=== PATIENT | male | born 1955 | race African-American/Black ===

== ENCOUNTER 2017-09-15 13:00 | Inpatient (IN) | payer OTHER, MEDICARE ==
[2017-09-15 14:14] LABS: HEMATOCRIT 43.7 % (42.0-52.0); HEMOGLOBIN 14.5 g/dl (14.0-18.0); MEAN CORPUSCULAR HEMOGLOBIN 31.5 pg (27.0-33.0); MEAN CORPUSCULAR HGB CONC 33.2 g/dl (32.0-36.5); PLATELET COUNT, AUTOMATED 250 10^3/uL (150-450); WHITE BLOOD COUNT 14.2 10^3/uL (4.0-10.0)
[2017-09-15 14:37] LABS: ALBUMIN 4.1 GM/DL (3.2-5.2); ALBUMIN/GLOBULIN RATIO 1.21 (1.00-1.93); ALKALINE PHOSPHATASE 47 U/L (45-117); ALT/SGPT 27 U/L (12-78); ANION GAP 2 MEQ/L (8-16); AST/SGOT 15 U/L (7-37); BILIRUBIN,DIRECT 0.1 MG/DL (0.0-0.2); BILIRUBIN,TOTAL 0.4 MG/DL (0.2-1.0); BLOOD UREA NITROGEN 22 MG/DL (7-18); CALCIUM LEVEL 8.6 MG/DL (8.8-10.2); CARBON DIOXIDE LEVEL 32 MEQ/L (21-32); CHLORIDE LEVEL 106 MEQ/L (98-107); CREATININE FOR GFR 1.12 MG/DL (0.70-1.30); ETHYL ALCOHOL (ETHANOL) < 0.003 % (0.000-0.010); GLOMERULAR FILTRATION RATE > 60.0 (>49); GLUCOSE, FASTING 86 MG/DL (70-100); POTASSIUM SERUM 4.1 MEQ/L (3.5-5.1); SALICYLATE LEVEL < 1.7 MG/DL (5.0-30.0); SODIUM LEVEL 140 MEQ/L (136-145); THYROID STIMULATING HORMONE 0.932 uIU/ML (0.358-3.740); TOTAL PROTEIN 7.5 GM/DL (6.4-8.2)
[2017-09-15 14:41] LABS: ACETAMINOPHEN LEVEL < 2.0 UG/ML (10.0-30.0)
[2017-09-15 15:25] LABS: AMPHETAMINES LEVEL URINE NEGATIVE (NEGATIVE); BARBITURATES URINE NEGATIVE (NEGATIVE); BENZODIAZEPINES URINE NEGATIVE (NEGATIVE); CANNABINOIDS URINE POSITIVE (NEGATIVE); COCAINE METABOLITE URINE NEGATIVE (NEGATIVE); METHADONE URINE NEGATIVE (NEGATIVE); OPIATES URINE NEGATIVE (NEGATIVE); PHENCYCLIDINE URINE NEGATIVE (NEGATIVE)
[2017-09-15] MEDS ORDERED: ACETAMINOPHEN TAB 650MG DOSE (2X325MG) PO (20:45)
[2017-09-15] MEDS ORDERED: MAALOX 30 ML SUSP *UDC PO (20:45)
[2017-09-15] MEDS ORDERED: MOM 30ML SUSPENSION UDC PO (20:45)
[2017-09-15 21:00] LABS: BEDSIDE GLUCOSE 160 MG/DL (80-115)
[2017-09-15] MEDS ORDERED: OLANZapine 5 MG TAB PO (21:15)
[2017-09-16] MEDS: traZODone 50 MG TAB PO (00:15)
[2017-09-16] MEDS: PALIPERIDONE 3 MG ER TAB (INVEGA) PO ×2 (00:19→21:13)
[2017-09-16] MEDS ORDERED: GLUCOSE 4 GM CHEW TABLET PO (04:00)
[2017-09-16] MEDS ORDERED: GLUCAGON FOR INJ 1 MG VIAL (J1610) SC (04:00)
[2017-09-16] MEDS ORDERED: DEXTROSE 50% 50 ML SYRINGE IV (04:00)
[2017-09-16 06:44] LABS: BEDSIDE GLUCOSE 123 MG/DL (80-115)
[2017-09-16] MEDS ORDERED: NovoLOG MIX 70/30 PER UNIT SC ×2 (07:30→12:00)
[2017-09-16] MEDS: NovoLOG MIX 70/30 PER UNIT SC (07:51)
[2017-09-16] MEDS: LEVEMIR (INSULIN DETEMIR) 1 UNITS/0.01ML SC (09:12)
[2017-09-16] MEDS: FLUoxetine 10 MG CAP PO (09:13)
[2017-09-16] MEDS: ATORVASTATIN 20 MG TAB PO (09:50)
[2017-09-16] MEDS: LOSARTAN 50 MG TAB PO (09:51)
[2017-09-16] MEDS: TAMSULOSIN 0.4 MG CAP PO (09:51)
[2017-09-16] MEDS: VITAMIN D 1,000 INTERNATIONAL UNITS TABLET PO (09:51)
[2017-09-16 10:19] LABS: ESTIMATED AVERAGE GLUCOSE 154 MG/DL (60-110)
[2017-09-16] MEDS: oxyBUTYnin *DITROPAN XL* 5 MG TABCR PO (11:30)
[2017-09-16] MEDS: ASPIRIN ENTERIC 325 MG TAB PO (11:31)
[2017-09-16] MEDS: ISOSORBIDE MON. (IMDUR) 60 MG XR TAB PO (11:31)
[2017-09-16] MEDS: hydroCHLOROthiazide 12.5 MG CAPSULE PO (11:31)
[2017-09-16] MEDS: METOPROLOL SUCC (TopROL XL) 100MG *XL* TAB PO (11:31)
[2017-09-16 16:57] LABS: BEDSIDE GLUCOSE 188 MG/DL (80-115)
[2017-09-16] MEDS: HumaLOG INSULIN (NovoLOG) PER UNIT SC (17:17)
[2017-09-16] MEDS: metFORMIN (GLUCOPHAGE) 500 MG TAB PO (17:17)
[2017-09-16] MEDS: traZODone 100 MG TAB PO (21:13)
[2017-09-16 21:18] LABS: BEDSIDE GLUCOSE 79 MG/DL (80-115)
[2017-09-17 06:27] LABS: BEDSIDE GLUCOSE 94 MG/DL (80-115)
[2017-09-17] MEDS: HumaLOG INSULIN (NovoLOG) PER UNIT SC ×2 (07:30→12:51)
[2017-09-17 08:18] LABS: HEMOGLOBIN 14.6 g/dl (14.0-18.0); MEAN CORPUSCULAR HEMOGLOBIN 31.5 pg (27.0-33.0); MEAN CORPUSCULAR HGB CONC 33.2 g/dl (32.0-36.5); MEAN CORPUSCULAR VOLUME 94.8 fl (80.0-96.0); PLATELET COUNT, AUTOMATED 268 10^3/uL (150-450); RED BLOOD COUNT 4.64 10^6/uL (4.30-6.10); RED CELL DISTRIBUTION WIDTH 13.9 % (11.5-14.5); WHITE BLOOD COUNT 14.2 10^3/uL (4.0-10.0)
[2017-09-17] MEDS: metFORMIN (GLUCOPHAGE) 500 MG TAB PO (08:49)
[2017-09-17] MEDS: oxyBUTYnin *DITROPAN XL* 5 MG TABCR PO (08:51)
[2017-09-17] MEDS: ISOSORBIDE MON. (IMDUR) 60 MG XR TAB PO (08:51)
[2017-09-17] MEDS: TAMSULOSIN 0.4 MG CAP PO (08:51)
[2017-09-17] MEDS: METOPROLOL SUCC (TopROL XL) 100MG *XL* TAB PO (08:52)
[2017-09-17] MEDS: ATORVASTATIN 20 MG TAB PO (08:52)
[2017-09-17] MEDS: hydroCHLOROthiazide 12.5 MG CAPSULE PO (08:52)
[2017-09-17] MEDS: FLUoxetine 20 MG CAP PO (08:53)
[2017-09-17] MEDS: VITAMIN D 1,000 INTERNATIONAL UNITS TABLET PO (08:53)
[2017-09-17] MEDS: LOSARTAN 50 MG TAB PO (08:53)
[2017-09-17] MEDS: ASPIRIN ENTERIC 325 MG TAB PO (08:53)
[2017-09-17] MEDS: LEVEMIR (INSULIN DETEMIR) 1 UNITS/0.01ML SC (08:54)
[2017-09-17 18:57] LABS: BEDSIDE GLUCOSE 191 MG/DL (80-115)
== END 2017-09-17 12:50 | DRG 882 ==
LOC: M ED 13:00 → M ED INP 20:36 → M PSY 22:30
DX: F42.9 Obsessive-compulsive disorder, unspecified (principal); F25.9 Schizoaffective disorder, unspecified; C61 Malignant neoplasm of prostate; E78.00 Pure hypercholesterolemia, unspecified; I10 Essential (primary) hypertension; E11.9 Type 2 diabetes mellitus without complications; M25.561 Pain in right knee; M25.562 Pain in left knee; F12.10 Cannabis abuse, uncomplicated; N32.81 Overactive bladder; M25.511 Pain in right shoulder; M25.512 Pain in left shoulder; I25.10 Atherosclerotic heart disease of native coronary artery without angina pectoris; I25.2 Old myocardial infarction; Z95.1 Presence of aortocoronary bypass graft; Z81.8 Family history of other mental and behavioral disorders; Z79.82 Long term (current) use of aspirin; Z79.4 Long term (current) use of insulin; Z79.899 Other long term (current) drug therapy

== ENCOUNTER → 2017-10-01 | Outpatient (CLI) | payer OTHER | LOC: M CARPUL 07:59 | DX: I25.10 Atherosclerotic heart disease of native coronary artery without angina pectoris (principal) | CPT/HCPCS: 93306 ==

== ENCOUNTER 2017-11-19 09:12 | Emergency (ER) | payer OTHER ==
[2017-11-19] MEDS: LIDOCAINE 2% 5ML JELLY UROJET TOP (10:13)
[2017-11-19 10:24] LABS: BASO # 0.1 10^3/uL (0.0-0.2); BASO % 0.5 % (0.0-1.0); EOS # 0.1 10^3/uL (0.0-0.50); EOS % 1.4 % (0.0-3.0); HEMATOCRIT 34.8 % (42.0-52.0); HEMOGLOBIN 11.5 g/dl (13.5-17.5); IMMATURE GRANULOCYTE % 0.7 % (0-3.0); LYMPH # 1.1 10^3/uL (1.5-4.5); LYMPH % 10.1 % (24.0-44.0); MEAN CORPUSCULAR HEMOGLOBIN 31.5 pg (27.0-33.0); MEAN CORPUSCULAR VOLUME 95.3 fl (80.0-96.0); MONO # 0.6 10^3/uL (0.0-0.8); MONO % 5.9 % (0.0-5.0); NEUTROPHILS # 8.5 10^3/uL (1.8-7.7); NEUTROPHILS % 81.4 % (36.0-66.0); PLATELET COUNT, AUTOMATED 259 10^3/uL (150-450); RED BLOOD COUNT 3.65 10^6/uL (4.30-6.10); RED CELL DISTRIBUTION WIDTH 12.8 % (11.5-14.5); WHITE BLOOD COUNT 10.4 10^3/uL (4.0-10.0)
[2017-11-19 10:32] LABS: INR 1.07
[2017-11-19 10:33] LABS: PARTIAL THROMBOPLASTIN TIME 35.9 SECONDS (26.8-37.9)
[2017-11-19 10:44] LABS: ALBUMIN 3.6 GM/DL (3.2-5.2); ALKALINE PHOSPHATASE 37 U/L (45-117); ALT/SGPT 18 U/L (12-78); ANION GAP 11 MEQ/L (8-16); AST/SGOT 20 U/L (7-37); BILIRUBIN,DIRECT < 0.1 MG/DL (0.0-0.2); BILIRUBIN,TOTAL 0.4 MG/DL (0.2-1.0); BLOOD UREA NITROGEN 15 MG/DL (7-18); CALCIUM LEVEL 8.5 MG/DL (8.8-10.2); CARBON DIOXIDE LEVEL 20 MEQ/L (21-32); CHLORIDE LEVEL 111 MEQ/L (98-107); CREATININE FOR GFR 1.15 MG/DL (0.70-1.30); GLOMERULAR FILTRATION RATE > 60.0 (>49); GLUCOSE, FASTING 68 MG/DL (70-100); POTASSIUM SERUM 4.4 MEQ/L (3.5-5.1); SODIUM LEVEL 142 MEQ/L (136-145); TOTAL PROTEIN 7.2 GM/DL (6.4-8.2)
[2017-11-19 11:03] LABS: APPEARANCE, URINE HAZY (CLEAR); BACTERIA, URINE AUTO NEGATIVE (NEGATIVE); BILIRUBIN, URINE AUTO NEGATIVE (NEGATIVE); BLOOD, URINE BLOOD 2+ (NEGATIVE); COLOR, URINE YELLOW (YELLOW); GLUCOSE, URINE (UA) AUTO 3+ mg/dL (NEGATIVE); KETONE, URINE AUTO NEGATIVE (NEGATIVE); LEUKOCYTE ESTERASE, URINE AUTO 2+ (NEGATIVE); NITRITE, URINE AUTO NEGATIVE (NEGATIVE); PROTEIN, URINE AUTO NEGATIVE (NEGATIVE); RBC, URINE AUTO 39 /HPF (0-3); SPECIFIC GRAVITY URINE AUTO 1.021 (1.002-1.035); SQUAMOUS EPITHELIAL CELL UR AU 4 /HPF (0-6); WBC, URINE AUTO 27 /HPF (0-3)
== END 2017-11-19 12:25 | disposition home or self-care (01) ==
LOC: M ED 09:12
DX: T83.098A Other mechanical complication of other urinary catheter, initial encounter (principal); R31.0 Gross hematuria; Y73.2 Prosthetic and other implants, materials and accessory gastroenterology and urology devices associated with adverse incidents; R60.0 Localized edema; K21.9 Gastro-esophageal reflux disease without esophagitis; F20.9 Schizophrenia, unspecified; E11.9 Type 2 diabetes mellitus without complications; M54.5 Low back pain; Z85.46 Personal history of malignant neoplasm of prostate; I25.2 Old myocardial infarction; Z87.891 Personal history of nicotine dependence; Z79.899 Other long term (current) drug therapy; Z79.4 Long term (current) use of insulin; Z79.82 Long term (current) use of aspirin
CPT/HCPCS: 93970

== ENCOUNTER 2018-06-04 10:26 | Inpatient (IN) | payer OTHER ==
[2018-06-04 10:57] LABS: VENOUS BASE EXCESS -2.3 (-2.0-2.0); VENOUS O2 SATURATION 51.8 % (60.0-80.0); VENOUS PARTIAL PRESSURE CO2 28.1 mmHg (38.0-50.0); VENOUS PARTIAL PRESSURE O2 26.1 mmHg (30.0-50.0); VENOUS PH 7.471 UNITS (7.330-7.430); VENOUS STANDARD HCO3 21.6 MEQ/L; VENOUS TOTAL CO2 20.9 MEQ/L (24.0-28.0)
[2018-06-04] MEDS: METOPROLOL TART 50 MG TAB PO ×2 (11:04→16:17)
[2018-06-04] MEDS: METOPROLOL 5 MG/5 ML VIAL IV ×3 (11:04→11:22)
[2018-06-04 11:06] LABS: BASO # 0.1 10^3/uL (0.0-0.2); BASO % 0.6 % (0.0-1.0); EOS # 0.1 10^3/uL (0.0-0.50); HEMATOCRIT 38.9 % (42.0-52.0); HEMOGLOBIN 12.9 g/dl (13.5-17.5); IMMATURE GRANULOCYTE % 0.6 % (0-3.0); LYMPH # 1.5 10^3/uL (1.5-4.5); MEAN CORPUSCULAR HEMOGLOBIN 30.4 pg (27.0-33.0); MEAN CORPUSCULAR HGB CONC 33.2 g/dl (32.0-36.5); MEAN CORPUSCULAR VOLUME 91.7 fl (80.0-96.0); MONO # 0.7 10^3/uL (0.0-0.8); MONO % 7.4 % (0.0-5.0); NEUTROPHILS # 7.2 10^3/uL (1.8-7.7); NEUTROPHILS % 74.4 % (36.0-66.0); PLATELET COUNT, AUTOMATED 269 10^3/uL (150-450); RED BLOOD COUNT 4.24 10^6/uL (4.30-6.10); RED CELL DISTRIBUTION WIDTH 13.3 % (11.5-14.5); WHITE BLOOD COUNT 9.7 10^3/uL (4.0-10.0)
[2018-06-04 11:16] LABS: INR 1.13; PROTHROMBIN TIME 14.6 SECONDS (12.1-14.4)
[2018-06-04] MEDS ORDERED: ONDANSETRON 4MG/2ML VIAL (J2405) As Ordered (11:27)
[2018-06-04] MEDS ORDERED: MORPHINE 2 MG/ML 1ML SYRINGE (J2270) As Ordered (11:27)
[2018-06-04] MEDS: ONDANSETRON 4MG/2ML VIAL (J2405) IV (11:28)
[2018-06-04] MEDS: MORPHINE 2 MG/ML 1ML SYRINGE (J2270) IV ×2 (11:29→12:03)
[2018-06-04 11:43] LABS: ALBUMIN 3.7 GM/DL (3.2-5.2); ALBUMIN/GLOBULIN RATIO 1.06 (1.00-1.93); ALKALINE PHOSPHATASE 43 U/L (45-117); ALT/SGPT 23 U/L (12-78); ANION GAP 12 MEQ/L (8-16); AST/SGOT 17 U/L (7-37); BILIRUBIN,DIRECT 0.2 MG/DL (0.0-0.2); BILIRUBIN,TOTAL 1.1 MG/DL (0.2-1.0); BLOOD UREA NITROGEN 14 MG/DL (7-18); CALCIUM LEVEL 8.8 MG/DL (8.8-10.2); CARBON DIOXIDE LEVEL 22 MEQ/L (21-32); CHLORIDE LEVEL 107 MEQ/L (98-107); CPK CREATINE PHOSPHOKINASE 513 U/L (39-308); CREATININE FOR GFR 1.37 MG/DL (0.70-1.30); GLOMERULAR FILTRATION RATE > 60.0 (>49); GLUCOSE, FASTING 109 MG/DL (70-100); MB/CK RELATIVE INDEX 0.62 (< OR =4); NT-PRO BNP 1249 PG/ML (<125); POTASSIUM SERUM 4.1 MEQ/L (3.5-5.1); SODIUM LEVEL 141 MEQ/L (136-145); THYROID STIMULATING HORMONE 0.938 uIU/ML (0.358-3.740); TOTAL PROTEIN 7.2 GM/DL (6.4-8.2); TROPONIN I 0.03 NG/ML (< 0.10)
[2018-06-04] MEDS: NS 1,000 ML IV (14:54)
[2018-06-04 15:45] LABS: CPK CREATINE PHOSPHOKINASE 453 U/L (39-308); MB/CK RELATIVE INDEX 0.55 (< OR =4); TROPONIN I 0.04 NG/ML (< 0.10)
[2018-06-04] MEDS: APIXABAN 5 MG TAB (ELIQUIS) PO (16:47)
[2018-06-04] MEDS ORDERED: GLUCOSE 4 GM CHEW TABLET PO (17:15)
[2018-06-04] MEDS ORDERED: GLUCAGON FOR INJ 1 MG VIAL (J1610) SC (17:15)
[2018-06-04] MEDS ORDERED: DEXTROSE 50% 50 ML SYRINGE IV (17:15)
[2018-06-04] MEDS: HumaLOG INSULIN (NovoLOG) PER UNIT SC ×2 (17:30→21:00)
[2018-06-04] MEDS ORDERED: PERCOCET 5MG/325MG TAB PO (17:45)
[2018-06-04 17:53] LABS: KETONE, URINE AUTO RFX NEGATIVE (NEGATIVE); LEUKOCYTE ESTERASE UR AUTO RFX NEGATIVE (NEGATIVE); MUCUS, URINE RFX LARGE (NEGATIVE); NITRITE, URINE AUTO RFX NEGATIVE (NEGATIVE); RBC, URINE AUTO RFX 1 /HPF (0-3); SPECIFIC GRAVITY UR AUTO RFX 1.027 (1.002-1.035); SQUAM EPITHELIAL CELL UR AURFX 4 /HPF (0-6); WBC, URINE AUTO RFX 1 /HPF (0-3)
[2018-06-04] MEDS: TROSPIUM 20 MG TAB PO (21:00)
[2018-06-05 00:37] LABS: BEDSIDE GLUCOSE 159 MG/DL (80-115)
[2018-06-05] MEDS: NS 1,000 ML IV (00:50)
[2018-06-05] MEDS: LEVEMIR (INSULIN DETEMIR) 1 UNITS/0.01ML SC ×3 (00:50→20:49)
[2018-06-05] MEDS: traZODone 50 MG TAB PO ×2 (00:51→20:48)
[2018-06-05 01:53] LABS: CPK CREATINE PHOSPHOKINASE 409 U/L (39-308); MB/CK RELATIVE INDEX 0.71 (< OR =4); TROPONIN I 0.02 NG/ML (< 0.10)
[2018-06-05 06:05] LABS: HEMATOCRIT 35.8 % (42.0-52.0); HEMOGLOBIN 11.6 g/dl (13.5-17.5); MEAN CORPUSCULAR HEMOGLOBIN 30.4 pg (27.0-33.0); MEAN CORPUSCULAR HGB CONC 32.4 g/dl (32.0-36.5); MEAN CORPUSCULAR VOLUME 93.7 fl (80.0-96.0); PLATELET COUNT, AUTOMATED 230 10^3/uL (150-450); RED BLOOD COUNT 3.82 10^6/uL (4.30-6.10); RED CELL DISTRIBUTION WIDTH 13.4 % (11.5-14.5); WHITE BLOOD COUNT 9.2 10^3/uL (4.0-10.0)
[2018-06-05 06:22] LABS: ANION GAP 7 MEQ/L (8-16); BLOOD UREA NITROGEN 17 MG/DL (7-18); CALCIUM LEVEL 8.1 MG/DL (8.8-10.2); CARBON DIOXIDE LEVEL 21 MEQ/L (21-32); CHLORIDE LEVEL 111 MEQ/L (98-107); GLOMERULAR FILTRATION RATE > 60.0 (>49); GLUCOSE, FASTING 109 MG/DL (70-100); POTASSIUM SERUM 4.2 MEQ/L (3.5-5.1); SODIUM LEVEL 139 MEQ/L (136-145)
[2018-06-05] MEDS: FLUBLOK(EGG FREE)(QUAD)INFLUENZA VACC 0.5ML SYRINGE (90682)18YRS&OLDER IM ×2 (09:00→15:05)
[2018-06-05] MEDS ORDERED: METOPROLOL TART 50 MG TAB PO (09:00)
[2018-06-05] MEDS ORDERED: ISOVUE-370 76% 100ML VIAL (Q9967) As Ordered (09:51)
[2018-06-05] MEDS: LOSARTAN 50 MG TAB PO (09:58)
[2018-06-05] MEDS: ROSUVASTATIN 10 MG TAB (CRESTOR) PO (09:58)
[2018-06-05] MEDS: HumaLOG INSULIN (NovoLOG) PER UNIT SC ×4 (09:58→20:48)
[2018-06-05] MEDS: FLUoxetine 20 MG CAP PO (09:58)
[2018-06-05] MEDS: ISOSORBIDE MON. (IMDUR) 60 MG XR TAB PO (09:59)
[2018-06-05] MEDS: TROSPIUM 20 MG TAB PO ×2 (10:00→20:48)
[2018-06-05] MEDS: APIXABAN 5 MG TAB (ELIQUIS) PO ×2 (10:00→20:48)
[2018-06-05] MEDS: ASPIRIN 81 MG ENTERIC TAB PO (10:00)
[2018-06-05] MEDS: METOPROLOL TART 50 MG TAB PO ×3 (10:00→20:49)
[2018-06-05 10:03] LABS: CPK CREATINE PHOSPHOKINASE 377 U/L (39-308); MB/CK RELATIVE INDEX 0.74 (< OR =4); TROPONIN I 0.04 NG/ML (< 0.10)
[2018-06-05] MEDS ORDERED: SLF 3 ML SYR IV (12:00)
[2018-06-05 12:29] LABS: BEDSIDE GLUCOSE 151 MG/DL (80-115)
[2018-06-05] MEDS: CEPACOL LOZENGE PO ×2 (12:59→20:45)
[2018-06-05] MEDS: SLF 3 ML SYR IV ×2 (14:22→22:17)
[2018-06-05 18:33] LABS: BEDSIDE GLUCOSE 200 MG/DL (80-115)
[2018-06-05 20:49] LABS: BEDSIDE GLUCOSE 202 MG/DL (80-115)
[2018-06-05] MEDS: BENZONATATE 100 MG CAP PO (22:13)
[2018-06-06] MEDS: CEPACOL LOZENGE PO ×2 (03:55→21:59)
[2018-06-06] MEDS: METOPROLOL TART 50 MG TAB PO ×4 (03:55→21:58)
[2018-06-06] MEDS: BENZONATATE 100 MG CAP PO ×2 (03:55→21:59)
[2018-06-06 04:51] LABS: HEMATOCRIT 33.4 % (42.0-52.0); HEMOGLOBIN 10.7 g/dl (13.5-17.5); MEAN CORPUSCULAR HEMOGLOBIN 30.5 pg (27.0-33.0); MEAN CORPUSCULAR VOLUME 95.2 fl (80.0-96.0); PLATELET COUNT, AUTOMATED 231 10^3/uL (150-450); RED BLOOD COUNT 3.51 10^6/uL (4.30-6.10); RED CELL DISTRIBUTION WIDTH 13.2 % (11.5-14.5); WHITE BLOOD COUNT 9.1 10^3/uL (4.0-10.0)
[2018-06-06 05:11] LABS: ANION GAP 4 MEQ/L (8-16); BLOOD UREA NITROGEN 19 MG/DL (7-18); CALCIUM LEVEL 8.5 MG/DL (8.8-10.2); CARBON DIOXIDE LEVEL 29 MEQ/L (21-32); CHLORIDE LEVEL 108 MEQ/L (98-107); CREATININE FOR GFR 1.23 MG/DL (0.70-1.30); GLOMERULAR FILTRATION RATE > 60.0 (>49); GLUCOSE, FASTING 159 MG/DL (70-100); POTASSIUM SERUM 4.5 MEQ/L (3.5-5.1); SODIUM LEVEL 141 MEQ/L (136-145)
[2018-06-06] MEDS: SLF 3 ML SYR IV ×3 (05:15→22:03)
[2018-06-06] MEDS: HumaLOG INSULIN (NovoLOG) PER UNIT SC ×4 (08:38→21:00)
[2018-06-06] MEDS: LEVEMIR (INSULIN DETEMIR) 1 UNITS/0.01ML SC ×2 (08:38→22:00)
[2018-06-06] MEDS: FUROSEMIDE 40 MG/4 ML VIAL (J1940) IV (08:38)
[2018-06-06] MEDS: FLUoxetine 20 MG CAP PO (08:39)
[2018-06-06] MEDS: ISOSORBIDE MON. (IMDUR) 60 MG XR TAB PO (08:39)
[2018-06-06] MEDS: ASPIRIN 81 MG ENTERIC TAB PO (08:39)
[2018-06-06] MEDS: ROSUVASTATIN 10 MG TAB (CRESTOR) PO (08:39)
[2018-06-06] MEDS: APIXABAN 5 MG TAB (ELIQUIS) PO ×2 (08:40→21:59)
[2018-06-06] MEDS: LOSARTAN 50 MG TAB PO (08:40)
[2018-06-06] MEDS: TROSPIUM 20 MG TAB PO ×2 (08:44→21:59)
[2018-06-06] MEDS: BISACODYL 5 MG TAB PO (10:18)
[2018-06-06 12:10] LABS: BEDSIDE GLUCOSE 195 MG/DL (80-115)
[2018-06-06 17:19] LABS: BEDSIDE GLUCOSE 124 MG/DL (80-115)
[2018-06-06] MEDS: traZODone 50 MG TAB PO (21:59)
[2018-06-06 22:04] LABS: BEDSIDE GLUCOSE 180 MG/DL (80-115)
[2018-06-07] MEDS: DOCUSATE SODIUM 100 MG CAP PO ×4 (00:28→22:16)
[2018-06-07] MEDS: SENNA 8.6 MG TAB (SENOKOT) PO ×4 (00:29→22:16)
[2018-06-07] MEDS: METOPROLOL TART 50 MG TAB PO ×4 (03:40→22:17)
[2018-06-07 04:54] LABS: HEMATOCRIT 32.8 % (42.0-52.0); HEMOGLOBIN 10.9 g/dl (13.5-17.5); MEAN CORPUSCULAR HEMOGLOBIN 30.8 pg (27.0-33.0); MEAN CORPUSCULAR HGB CONC 33.2 g/dl (32.0-36.5); MEAN CORPUSCULAR VOLUME 92.7 fl (80.0-96.0); PLATELET COUNT, AUTOMATED 252 10^3/uL (150-450); RED BLOOD COUNT 3.54 10^6/uL (4.30-6.10); RED CELL DISTRIBUTION WIDTH 12.8 % (11.5-14.5); WHITE BLOOD COUNT 9.2 10^3/uL (4.0-10.0)
[2018-06-07 05:16] LABS: ANION GAP 8 MEQ/L (8-16); BLOOD UREA NITROGEN 21 MG/DL (7-18); CALCIUM LEVEL 8.6 MG/DL (8.8-10.2); CARBON DIOXIDE LEVEL 28 MEQ/L (21-32); CHLORIDE LEVEL 104 MEQ/L (98-107); CREATININE FOR GFR 1.23 MG/DL (0.70-1.30); GLOMERULAR FILTRATION RATE > 60.0 (>49); GLUCOSE, FASTING 204 MG/DL (70-100); SODIUM LEVEL 140 MEQ/L (136-145)
[2018-06-07] MEDS: MIRALAX *UNIT DOSE* 17GM PACKET PO (05:46)
[2018-06-07] MEDS: CEPACOL LOZENGE PO (05:46)
[2018-06-07] MEDS: BENZONATATE 100 MG CAP PO (05:48)
[2018-06-07] MEDS: SLF 3 ML SYR IV ×3 (05:48→22:19)
[2018-06-07] MEDS: ROSUVASTATIN 10 MG TAB (CRESTOR) PO (08:22)
[2018-06-07] MEDS: ASPIRIN 81 MG ENTERIC TAB PO (08:22)
[2018-06-07] MEDS: BISACODYL 5 MG TAB PO (08:22)
[2018-06-07] MEDS: FLUoxetine 20 MG CAP PO (08:22)
[2018-06-07] MEDS: APIXABAN 5 MG TAB (ELIQUIS) PO ×2 (08:22→22:18)
[2018-06-07] MEDS: FUROSEMIDE 40 MG/4 ML VIAL (J1940) IV (08:23)
[2018-06-07] MEDS: HumaLOG INSULIN (NovoLOG) PER UNIT SC ×4 (08:23→21:00)
[2018-06-07] MEDS: LEVEMIR (INSULIN DETEMIR) 1 UNITS/0.01ML SC ×2 (08:24→22:18)
[2018-06-07] MEDS: TROSPIUM 20 MG TAB PO ×2 (08:25→22:18)
[2018-06-07] MEDS: LOSARTAN 50 MG TAB PO ×2 (08:27→22:17)
[2018-06-07] MEDS: ISOSORBIDE MON. (IMDUR) 60 MG XR TAB PO (08:28)
[2018-06-07 11:41] LABS: BEDSIDE GLUCOSE 211 MG/DL (80-115)
[2018-06-07] MEDS: BISACODYL 10 MG SUPP PR (11:44)
[2018-06-07 16:31] LABS: BEDSIDE GLUCOSE 139 MG/DL (80-115)
[2018-06-07 20:03] LABS: BEDSIDE GLUCOSE 177 MG/DL (80-115)
[2018-06-07] MEDS: traZODone 50 MG TAB PO (22:18)
[2018-06-08] MEDS: METOPROLOL TART 50 MG TAB PO ×2 (03:34→08:26)
[2018-06-08] MEDS: SLF 3 ML SYR IV (05:23)
[2018-06-08 05:55] LABS: HEMATOCRIT 35.2 % (42.0-52.0); HEMOGLOBIN 11.5 g/dl (13.5-17.5); MEAN CORPUSCULAR HEMOGLOBIN 30.4 pg (27.0-33.0); MEAN CORPUSCULAR HGB CONC 32.7 g/dl (32.0-36.5); MEAN CORPUSCULAR VOLUME 93.1 fl (80.0-96.0); PLATELET COUNT, AUTOMATED 272 10^3/uL (150-450); RED BLOOD COUNT 3.78 10^6/uL (4.30-6.10); RED CELL DISTRIBUTION WIDTH 12.8 % (11.5-14.5); WHITE BLOOD COUNT 8.2 10^3/uL (4.0-10.0)
[2018-06-08 06:20] LABS: ANION GAP 6 MEQ/L (8-16); BLOOD UREA NITROGEN 19 MG/DL (7-18); CALCIUM LEVEL 8.9 MG/DL (8.8-10.2); CARBON DIOXIDE LEVEL 26 MEQ/L (21-32); CHLORIDE LEVEL 105 MEQ/L (98-107); CREATININE FOR GFR 1.07 MG/DL (0.70-1.30); GLOMERULAR FILTRATION RATE > 60.0 (>49); GLUCOSE, FASTING 156 MG/DL (70-100); POTASSIUM SERUM 3.6 MEQ/L (3.5-5.1); SODIUM LEVEL 137 MEQ/L (136-145)
[2018-06-08] MEDS: ASPIRIN 81 MG ENTERIC TAB PO (08:25)
[2018-06-08] MEDS: ROSUVASTATIN 10 MG TAB (CRESTOR) PO (08:25)
[2018-06-08] MEDS: LOSARTAN 50 MG TAB PO (08:26)
[2018-06-08] MEDS: FUROSEMIDE 40 MG TAB PO (08:26)
[2018-06-08] MEDS: FLUoxetine 20 MG CAP PO (08:26)
[2018-06-08] MEDS: APIXABAN 5 MG TAB (ELIQUIS) PO (08:27)
[2018-06-08] MEDS: DOCUSATE SODIUM 100 MG CAP PO (08:27)
[2018-06-08] MEDS: ISOSORBIDE MON. (IMDUR) 60 MG XR TAB PO (08:27)
[2018-06-08] MEDS: HumaLOG INSULIN (NovoLOG) PER UNIT SC (08:27)
[2018-06-08] MEDS: SENNA 8.6 MG TAB (SENOKOT) PO (08:28)
[2018-06-08] MEDS: TROSPIUM 20 MG TAB PO (08:29)
[2018-06-08] MEDS: LEVEMIR (INSULIN DETEMIR) 1 UNITS/0.01ML SC (08:29)
[2018-06-08 11:26] LABS: BEDSIDE GLUCOSE 211 MG/DL (80-115)
== END 2018-06-08 12:23 | disposition home or self-care (01) | DRG 309 ==
LOC: M PCU 06-05 00:19 → M MSPAV 06-07 16:36 → M PCU 06-05 05:06 → M ED 10:26 → M ED INP 19:13
PROVIDERS: Hospitalist
DX: I48.91 Unspecified atrial fibrillation (principal); I50.40 Unspecified combined systolic (congestive) and diastolic (congestive) heart failure; I48.92 Unspecified atrial flutter; G47.00 Insomnia, unspecified; E78.5 Hyperlipidemia, unspecified; I27.20 Pulmonary hypertension, unspecified; F42.9 Obsessive-compulsive disorder, unspecified; I34.0 Nonrheumatic mitral (valve) insufficiency; N32.81 Overactive bladder; E66.9 Obesity, unspecified; I25.10 Atherosclerotic heart disease of native coronary artery without angina pectoris; N40.0 Benign prostatic hyperplasia without lower urinary tract symptoms; F25.9 Schizoaffective disorder, unspecified; I11.0 Hypertensive heart disease with heart failure; E11.9 Type 2 diabetes mellitus without complications; Z95.1 Presence of aortocoronary bypass graft; Z85.47 Personal history of malignant neoplasm of testis; Z85.46 Personal history of malignant neoplasm of prostate; Z98.61 Coronary angioplasty status; Z87.891 Personal history of nicotine dependence; I25.2 Old myocardial infarction; Z79.82 Long term (current) use of aspirin; Z79.4 Long term (current) use of insulin; Z79.899 Other long term (current) drug therapy

== ENCOUNTER 2018-07-06 11:41 | Inpatient (IN) | payer OTHER ==
[2018-07-06 12:04] LABS: BASO % 0.4 % (0.0-1.0); EOS # 0.1 10^3/uL (0.0-0.50); EOS % 0.9 % (0.0-3.0); HEMATOCRIT 33.8 % (42.0-52.0); HEMOGLOBIN 10.7 g/dl (13.5-17.5); IMMATURE GRANULOCYTE % 0.5 % (0-3.0); LYMPH # 1.8 10^3/uL (1.5-4.5); LYMPH % 18.4 % (24.0-44.0); MEAN CORPUSCULAR HEMOGLOBIN 30.2 pg (27.0-33.0); MEAN CORPUSCULAR HGB CONC 31.7 g/dl (32.0-36.5); MEAN CORPUSCULAR VOLUME 95.5 fl (80.0-96.0); MONO # 0.7 10^3/uL (0.0-0.8); MONO % 6.7 % (0.0-5.0); NEUTROPHILS % 73.1 % (36.0-66.0); PLATELET COUNT, AUTOMATED 243 10^3/uL (150-450); RED BLOOD COUNT 3.54 10^6/uL (4.30-6.10); RED CELL DISTRIBUTION WIDTH 14.3 % (11.5-14.5); WHITE BLOOD COUNT 9.6 10^3/uL (4.0-10.0)
[2018-07-06 12:28] LABS: ALBUMIN 3.4 GM/DL (3.2-5.2); ALBUMIN/GLOBULIN RATIO 0.92 (1.00-1.93); ALKALINE PHOSPHATASE 54 U/L (45-117); ALT/SGPT 53 U/L (12-78); ANION GAP 6 MEQ/L (8-16); AST/SGOT 44 U/L (7-37); BILIRUBIN,DIRECT 0.2 MG/DL (0.0-0.2); BILIRUBIN,TOTAL 0.6 MG/DL (0.2-1.0); BLOOD UREA NITROGEN 16 MG/DL (7-18); CALCIUM LEVEL 8.3 MG/DL (8.8-10.2); CARBON DIOXIDE LEVEL 28 MEQ/L (21-32); CHLORIDE LEVEL 109 MEQ/L (98-107); CPK CREATINE PHOSPHOKINASE 413 U/L (39-308); CREATININE FOR GFR 1.08 MG/DL (0.70-1.30); GLOMERULAR FILTRATION RATE > 60.0 (>49); GLUCOSE, FASTING 42 MG/DL (70-100); LIPASE 67 U/L (73-393); MB/CK RELATIVE INDEX 0.73 (< OR =4); SODIUM LEVEL 143 MEQ/L (136-145); TOTAL PROTEIN 7.1 GM/DL (6.4-8.2); TROPONIN I 0.12 NG/ML (< 0.10)
[2018-07-06 12:29] LABS: INR 1.43; PROTHROMBIN TIME 17.7 SECONDS (12.1-14.4)
[2018-07-06 12:30] LABS: PARTIAL THROMBOPLASTIN TIME 38.1 SECONDS (25.4-37.6)
[2018-07-06 13:01] LABS: BEDSIDE GLUCOSE 36 MG/DL (80-115)
[2018-07-06] MEDS: DEXTROSE 50% 50 ML SYRINGE IV ×2 (13:04→14:58)
[2018-07-06] MEDS ORDERED: ISOVUE-370 76% 100ML VIAL (Q9967) As Ordered (13:11)
[2018-07-06 14:04] LABS: BEDSIDE GLUCOSE 74 MG/DL (80-115)
[2018-07-06] MEDS: METOPROLOL SUCC (TopROL XL) 100MG *XL* TAB PO (14:11)
[2018-07-06] MEDS: FUROSEMIDE 40 MG/4 ML VIAL (J1940) IV ×2 (14:28→20:00)
[2018-07-06 14:57] LABS: CPK CREATINE PHOSPHOKINASE 393 U/L (39-308); MB/CK RELATIVE INDEX 0.71 (< OR =4); TROPONIN I 0.14 NG/ML (< 0.10)
[2018-07-06 14:59] LABS: BEDSIDE GLUCOSE 52 MG/DL (80-115)
[2018-07-06] MEDS: LABETALOL HCL 100 MG/20 ML VIAL IV ×2 (15:20→16:21)
[2018-07-06 16:25] LABS: BEDSIDE GLUCOSE 102 MG/DL (80-115)
[2018-07-06] MEDS ORDERED: DEXTROSE 50% 50 ML SYRINGE IV (16:30)
[2018-07-06] MEDS ORDERED: GLUCOSE 4 GM CHEW TABLET PO (16:30)
[2018-07-06] MEDS ORDERED: GLUCAGON FOR INJ 1 MG VIAL (J1610) SC (16:30)
[2018-07-06] MEDS: **hydrALAZINE** 50 MG TAB PO (16:56)
[2018-07-06] MEDS: NITROGLYCERIN 2% OINT 1 GM *U/D* PKT TOP (16:58)
[2018-07-06 20:00] LABS: BEDSIDE GLUCOSE 208 MG/DL (80-115)
[2018-07-06] MEDS: LOSARTAN 50 MG TAB PO (21:26)
[2018-07-06] MEDS: traZODone 50 MG TAB PO (21:26)
[2018-07-06 22:05] LABS: BEDSIDE GLUCOSE 227 MG/DL (80-115)
[2018-07-06] MEDS: HumaLOG INSULIN (NovoLOG) PER UNIT SC (22:25)
[2018-07-07] MEDS: FUROSEMIDE 40 MG/4 ML VIAL (J1940) IV ×5 (00:08→18:25)
[2018-07-07] MEDS: WARFARIN SOD 5 MG TAB PO ×2 (01:43→18:25)
[2018-07-07 06:06] LABS: INR 1.54; PROTHROMBIN TIME 18.7 SECONDS (12.1-14.4)
[2018-07-07 06:36] LABS: BEDSIDE GLUCOSE 182 MG/DL (80-115)
[2018-07-07] MEDS: ROSUVASTATIN 10 MG TAB (CRESTOR) PO (07:57)
[2018-07-07] MEDS: METOPROLOL SUCC (TopROL XL) 100MG *XL* TAB PO (07:58)
[2018-07-07] MEDS: ISOSORBIDE MON. (IMDUR) 60 MG XR TAB PO (07:58)
[2018-07-07] MEDS: FLUoxetine 20 MG CAP PO (07:58)
[2018-07-07] MEDS: ASPIRIN 81 MG ENTERIC TAB PO (07:59)
[2018-07-07] MEDS: HumaLOG INSULIN (NovoLOG) PER UNIT SC ×4 (08:00→20:27)
[2018-07-07 08:30] LABS: HEMATOCRIT 34.7 % (42.0-52.0); MEAN CORPUSCULAR HEMOGLOBIN 29.6 pg (27.0-33.0); MEAN CORPUSCULAR HGB CONC 31.7 g/dl (32.0-36.5); MEAN CORPUSCULAR VOLUME 93.5 fl (80.0-96.0); PLATELET COUNT, AUTOMATED 239 10^3/uL (150-450); RED BLOOD COUNT 3.71 10^6/uL (4.30-6.10); RED CELL DISTRIBUTION WIDTH 14.5 % (11.5-14.5); WHITE BLOOD COUNT 9.8 10^3/uL (4.0-10.0)
[2018-07-07 08:46] LABS: ANION GAP 6 MEQ/L (8-16); BLOOD UREA NITROGEN 17 MG/DL (7-18); CALCIUM LEVEL 8.6 MG/DL (8.8-10.2); CARBON DIOXIDE LEVEL 31 MEQ/L (21-32); CHLORIDE LEVEL 100 MEQ/L (98-107); CPK CREATINE PHOSPHOKINASE 323 U/L (39-308); CREATININE FOR GFR 1.21 MG/DL (0.70-1.30); GLOMERULAR FILTRATION RATE > 60.0 (>49); GLUCOSE, FASTING 210 MG/DL (70-100); MB/CK RELATIVE INDEX 0.56 (< OR =4); POTASSIUM SERUM 3.2 MEQ/L (3.5-5.1); SODIUM LEVEL 137 MEQ/L (136-145); TROPONIN I 0.11 NG/ML (< 0.10)
[2018-07-07] MEDS: LEVEMIR (INSULIN DETEMIR) 1 UNITS/0.01ML SC ×2 (09:17→20:27)
[2018-07-07 11:47] LABS: BEDSIDE GLUCOSE 235 MG/DL (80-115)
[2018-07-07 17:20] LABS: BEDSIDE GLUCOSE 185 MG/DL (80-115)
[2018-07-07] MEDS: POTASSIUM CHLORIDE 10 MEQ SR TABLET PO (20:26)
[2018-07-07] MEDS: LOSARTAN 50 MG TAB PO (20:27)
[2018-07-07] MEDS: traZODone 50 MG TAB PO (20:27)
[2018-07-07 21:01] LABS: BEDSIDE GLUCOSE 267 MG/DL (80-115)
[2018-07-08 05:40] LABS: HEMATOCRIT 34.9 % (42.0-52.0); HEMOGLOBIN 11.1 g/dl (13.5-17.5); MEAN CORPUSCULAR HEMOGLOBIN 29.6 pg (27.0-33.0); MEAN CORPUSCULAR HGB CONC 31.8 g/dl (32.0-36.5); MEAN CORPUSCULAR VOLUME 93.1 fl (80.0-96.0); PLATELET COUNT, AUTOMATED 264 10^3/uL (150-450); RED BLOOD COUNT 3.75 10^6/uL (4.30-6.10); WHITE BLOOD COUNT 9.6 10^3/uL (4.0-10.0)
[2018-07-08 05:51] LABS: INR 1.59; PROTHROMBIN TIME 19.3 SECONDS (12.1-14.4)
[2018-07-08 05:53] LABS: ANION GAP 8 MEQ/L (8-16); BLOOD UREA NITROGEN 23 MG/DL (7-18); CALCIUM LEVEL 8.3 MG/DL (8.8-10.2); CARBON DIOXIDE LEVEL 32 MEQ/L (21-32); CHLORIDE LEVEL 100 MEQ/L (98-107); CREATININE FOR GFR 1.22 MG/DL (0.70-1.30); GLOMERULAR FILTRATION RATE > 60.0 (>49); GLUCOSE, FASTING 196 MG/DL (70-100); MAGNESIUM LEVEL 1.9 MG/DL (1.8-2.4); POTASSIUM SERUM 3.5 MEQ/L (3.5-5.1); SODIUM LEVEL 140 MEQ/L (136-145)
[2018-07-08] MEDS: ASPIRIN 81 MG ENTERIC TAB PO (08:19)
[2018-07-08] MEDS: METOPROLOL SUCC (TopROL XL) 100MG *XL* TAB PO (08:19)
[2018-07-08] MEDS: ROSUVASTATIN 10 MG TAB (CRESTOR) PO (08:19)
[2018-07-08] MEDS: ISOSORBIDE MON. (IMDUR) 60 MG XR TAB PO (08:20)
[2018-07-08] MEDS: POTASSIUM CHLORIDE 10 MEQ SR TABLET PO (08:20)
[2018-07-08] MEDS: HumaLOG INSULIN (NovoLOG) PER UNIT SC ×2 (08:21→12:39)
[2018-07-08] MEDS: FLUoxetine 20 MG CAP PO (08:21)
[2018-07-08] MEDS: LEVEMIR (INSULIN DETEMIR) 1 UNITS/0.01ML SC (08:21)
[2018-07-08] MEDS: FUROSEMIDE 40 MG/4 ML VIAL (J1940) IV (08:21)
[2018-07-08 11:26] LABS: BEDSIDE GLUCOSE 301 MG/DL (80-115)
== END 2018-07-08 16:15 | disposition home or self-care (01) | DRG 293 ==
LOC: M PCU 16:22 → M ED 11:41 → M ED INP 16:22 → M PCU 21:04
DX: I11.0 Hypertensive heart disease with heart failure (principal); I48.91 Unspecified atrial fibrillation; I25.10 Atherosclerotic heart disease of native coronary artery without angina pectoris; I50.33 Acute on chronic diastolic (congestive) heart failure; N40.0 Benign prostatic hyperplasia without lower urinary tract symptoms; E78.00 Pure hypercholesterolemia, unspecified; E11.9 Type 2 diabetes mellitus without complications; Z95.1 Presence of aortocoronary bypass graft; Z85.46 Personal history of malignant neoplasm of prostate; Z85.47 Personal history of malignant neoplasm of testis; Z87.891 Personal history of nicotine dependence; I16.0 Hypertensive urgency; Z79.01 Long term (current) use of anticoagulants; F25.9 Schizoaffective disorder, unspecified; Z79.4 Long term (current) use of insulin; Z79.82 Long term (current) use of aspirin; Z79.899 Other long term (current) drug therapy

== ENCOUNTER → 2018-11-27 | Outpatient (CLI) | payer OTHER ==
[~2018-11-27] MED LIST: ASPI-222 PO; ASPI-255 PO; ASPI81TAEC PO; ATOR80TA59 PO; CARD120C3 PO; CLOB-25 TOP; DILT30TA PO; DRIS50003 PO; ELIQ5TAB PO; FLOM0.4C39 PO; FLUO20CA19 PO; HYDR-3719 PO; HYDR12.55 PO; HYDR12CA PO; INSUH10VL SC; INSULANT SC; ISOS120T7 PO; JARD1TAB3 PO; LASI20TA3 PO; LASI40TA9 PO; LOSA100T50 PO; METF500T13 PO; METF500T4 PO; NEOSOIN2 TOP; NOVOINJ3 SC; OXYB10TA PO; PALI1TAB2 PO; ROSU40TA3 PO; TOPR200T PO; TRAZ10TA PO; TRAZO50TA PO; TROS20TA3 PO; VITA100067 PO; VITA500T PO; WARF4TAB51 PO
--- NOTE | 2018-11-28 09:58 | ECHO ---
DATE OF STUDY: 11/27/2018 REFERRING INDIVIDUAL: Leonel LaoLUIS INDICATION: Cardiomyopathy, unspecified. HEIGHT: 71 inches. WEIGHT: 232 pounds. 2D MEASUREMENTS: Left ventricle diastole: 6.15 cm Left atrium: 4.5 cm Aortic annulus: 2.1 cm Aortic root: 2.8 cm Ventricular septum: 1.44 cm Posterior wall: 1.17 cm Inferior vena cava: 1.5 cm DOPPLER MEASUREMENTS: Aortic valve velocity: 119 cm/s LVOT velocity: 77.6 cm/s LVOT VTI: 19.0 cm Mild mitral stenosis. Trace mitral regurgitation. Mitral E velocity: 177 cm/s Mitral A velocity: 49.9 cm/s Mitral mean pressure gradient: 5 mmHg Mitral E velocity (pulse wave): 176 cm/s Mitral A velocity (pulse wave): 103 cm/s Mitral deceleration time: 393 ms Very mild tricuspid regurgitation. Pulmonary artery systolic pressure: 39 mmHg DESCRIPTION: Rhythm was sinus. Image quality was adequate. No pericardial effusion. This was a 2D, M-mode, color flow Doppler, and pulse wave Doppler examination including mitral annular tissue Doppler. CONCLUSIONS: 1. Mildly dilated left ventricle with moderate combined mixed eccentric/concentric left ventricle hypertrophy. Akinesis of the base of inferior and basal inferolateral left ventricular (LV) segments. Hypokinesis of the basal inferoseptal segment and hypokinesis of the mid inferior segment. Normal regional wall motion and wall thickening elsewhere. Moderate reduction overall LV systolic function. Left ventricular ejection fraction (LVEF) 40% by visual assessment. Mild relative thinning of the posterobasal segment and inferobasal segment of the left ventricle compared to other regions. 2. 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 Mild mitral stenosis and trace mitral regurgitation. 3. Mild left atrial dilatation. 4. Mild aortic valve sclerosis with a three-cusp aortic valve. No aortic regurgitation. 5. Suggestive of mild elevation of pulmonary artery systolic pressure. 6. Normal right ventricle size and systolic function. 7. No pericardial effusion.
== END ==
LOC: M CARPUL 09:38
PROVIDERS: ATTEND Nurse Practitioner Family
DX: I42.9 Cardiomyopathy, unspecified (principal)

== ENCOUNTER 2020-11-09 12:48 | Emergency (ER) | payer OTHER ==
[~2020-11-09] VITALS: Ht 180.3 cm; Wt 107.7 kg
[~2020-11-09 12:48] MED LIST changes: -ASPI-222 PO; +ASPI-527 PO; +ASPI-569 PO; -ASPI81TAEC PO; -FLUO20CA19 PO; +FLUO20CA22 PO; +METF-838 PO; -METF500T4 PO; -OXYB10TA PO; +OXYB10TA23 PO; -ROSU40TA3 PO; +ROSU40TA4 PO; -TRAZ10TA PO; +TRAZ1TAB10 PO; +TRAZ1TAB12 PO; -TRAZO50TA PO; +VITA-243 PO; -VITA500T PO
[2020-11-09] MEDS ORDERED: ASPIRIN 81 MG CHEW TABLET PO ONE (13:10)
[2020-11-09] MEDS ORDERED: NS 1,000 ML IV SCH (13:10)
[2020-11-09 13:25] LABS: VENOUS BASE EXCESS -0.3 (-2.0-2.0); VENOUS HCO3 24.9 MEQ/L (23.0-27.0); VENOUS O2 SATURATION 81.3 % (60.0-80.0); VENOUS PARTIAL PRESSURE CO2 42.8 mmHg (38.0-50.0); VENOUS PARTIAL PRESSURE O2 45.3 mmHg (30.0-50.0); VENOUS PH 7.382 UNITS (7.330-7.430); VENOUS STANDARD HCO3 23.8 MEQ/L; VENOUS TOTAL CO2 26.2 MEQ/L (24.0-28.0)
[2020-11-09 13:39] LABS: PROTHROMBIN TIME 13.4 SECONDS (12.5-14.3)
[2020-11-09 13:42] LABS: D-DIMER QUANT 387.21 ng/ml (<500)
[2020-11-09 13:57] LABS: BASO # 0.1 10^3/uL (0.0-0.2); BASO % 0.7 % (0.0-1.0); EOS # 0.2 10^3/uL (0.0-0.5); EOS % 2.1 % (0.0-3.0); HEMOGLOBIN 12.3 g/dl (13.5-17.5); LYMPH # 2.1 10^3/uL (1.5-5.0); LYMPH % 24.4 % (24.0-44.0); MEAN CORPUSCULAR HEMOGLOBIN 30.8 pg (27.0-33.0); MEAN CORPUSCULAR HGB CONC 32.4 g/dl (32.0-36.5); MEAN CORPUSCULAR VOLUME 95.2 fl (80.0-96.0); MONO # 0.6 10^3/uL (0.0-0.8); MONO % 7.3 % (2.0-8.0); NEUTROPHILS # 5.6 10^3/uL (1.5-8.5); PLATELET COUNT, AUTOMATED 228 10^3/uL (150-450); RED BLOOD COUNT 3.99 10^6/uL (4.30-6.10); WHITE BLOOD COUNT 8.6 10^3/uL (4.0-10.0)
[2020-11-09 14:09] LABS: ALBUMIN 3.5 GM/DL (3.2-5.2); ALT/SGPT 22 U/L (12-78); BILIRUBIN,DIRECT < 0.1 MG/DL (0.0-0.2); BILIRUBIN,TOTAL 0.4 MG/DL (0.2-1.0); BLOOD UREA NITROGEN 19 MG/DL (7-18); CALCIUM LEVEL 9.3 MG/DL (8.8-10.2); CARBON DIOXIDE LEVEL 27 MEQ/L (21-32); CHLORIDE LEVEL 107 MEQ/L (98-107); CK-MB VALUE MASS 2.2 NG/ML (<3.6); CPK CREATINE PHOSPHOKINASE 300 U/L (39-308); CREATININE FOR GFR 1.29 MG/DL (0.70-1.30); GLOMERULAR FILTRATION RATE > 60.0 (>49); GLUCOSE, FASTING 186 MG/DL (70-100); MB/CK RELATIVE INDEX 0.73 (< OR =4); POTASSIUM SERUM 5.8 MEQ/L (3.5-5.1); SODIUM LEVEL 136 MEQ/L (136-145); TOTAL PROTEIN 7.1 GM/DL (6.4-8.2); TROPONIN I < 0.02 NG/ML (< 0.10)
--- NOTE | 2020-11-09 14:26 | REP ---
INDICATION: CHEST PAIN COMPARISON: 07/06/2018 TECHNIQUE: Portable AP view of the chest FINDINGS: The mediastinum and cardiac silhouette are stable and again demonstrate cardiomegaly with sternotomy, CABG and valve repair. Lung lopez are relatively clear and without focal consolidation, effusion, or pneumothorax. No obvious definite pulmonary vascular congestion or interstitial edema. IMPRESSION: Relatively chronic stable changes. <Electronically signed by Diego Lugo > 11/09/20 [id number]
[2020-11-09] MEDS ORDERED: KETOROLAC 30 MG/ML 1ML VIAL IV ONE (14:40)
[2020-11-09 15:15] VITALS: BP 142/70
--- NOTE | 2020-11-09 18:17 | ECGEPIP ---
[facility] - ED Test Date: 2020-11-09 Pat Name: SONIA BARGER Department: Room: - Gender: Male Medical Research Associate: PRANAY : 1955 Requested By: Aston Peguero Order Number: [id number] Reading MD: Sarah Millan Measurements Intervals [place] Rate: 54 P: 0 OK: 178 QRS: -11 QRSD: 104 T: 110 QT: 478 QTc: 453 Interpretive Statements Sinus bradycardia Moderate voltage criteria for LVH, may be normal variant ( R in aVL , Ted product ) Inferior infarct , age undetermined T wave abnormality, consider ischemia Electronically Signed on 11-09-2020 18:17:42 EDT by Sarah Millan
== END 2020-11-09 15:23 | disposition home or self-care (01) ==
LOC: M ED 12:48
DX: R07.89 Other chest pain (principal); R06.02 Shortness of breath; E11.9 Type 2 diabetes mellitus without complications; I10 Essential (primary) hypertension; I48.91 Unspecified atrial fibrillation; E78.5 Hyperlipidemia, unspecified; F43.10 Post-traumatic stress disorder, unspecified; Z95.1 Presence of aortocoronary bypass graft; Z85.46 Personal history of malignant neoplasm of prostate; Z79.899 Other long term (current) drug therapy; Z79.82 Long term (current) use of aspirin; Z79.4 Long term (current) use of insulin
CPT/HCPCS: 36415; 71045; 80048; 80076; 82550; 82553; 82803; 84484; 85025; 85379; 85610; 93005; 93041; 96374; 99285; J1885